=== PATIENT | female | born 1990 | race Caucasian/White ===

== ENCOUNTER 2019-11-05 21:54 | Emergency (ER) | payer SELFPAY ==
[~2019-11-05] VITALS: Ht 149.9 cm; Wt 49.9 kg
[2019-11-05 22:01] VITALS: BP 116/74
--- NOTE | 2019-11-05 22:06 | NUR ---
PT AMBULATED TO BATHROOM, STEADY GAI.T
--- NOTE | 2019-11-05 22:06 | NUR ---
PT AMBULATORY WITH STEADY GAIT TO BED #8
--- NOTE | 2019-11-05 23:00 | NUR ---
29 YEAR OLD FEMALE COMPLAINS OF LEFT SIDED PAIN X 2 DAYS. PATIENT STATES THAT 2 MONTHS AGO SHE WAS AT [facility] AND WAS DIAGNOSED WITH BACTERIAL INFECTION AND SHE HAS TAKEN ANTIBIOTICS WITHOUT RELIEF OF SYMPTOMS. PATIENT DENIES NAUSEA, VOMITTING, DIARRHEA. PATIENT STATES SOME BLACK STOOLS. BOWEL SOUNDS ACTIVE X4, TENDER IN LLQ, NONDISTENDED, SOFT. PATIENT ALSO COMPLAINS OF COUGH, FEVER, CHILLS. PATIENT AOX4, BREATHING EVEN AND UNLABORED, LUNGS CTABL, SKIN WARM AND DRY. ERMD AT BEDSIDE. TRANSLATION USED FOR [place]RAIN[place]. BED IN LOWEST POSITION, LOCKED, BED RAIL UPX1. PMH - DENIES ALLERGIES - NKA
[2019-11-05] MEDS ORDERED: KETOROLAC 60 MG/2 ML VIAL IM ONE (23:05)
[2019-11-05 23:15] VITALS: BP 116/74
--- NOTE | 2019-11-05 23:15 | NUR ---
PT DISCHARGED WITH PAPERWORK. EDUCATED PT REGARDING MEDICACTIONS AND D/C INSTRUCTIONS. PT VERBALIZED UNDERSTANDING OF TEACHING. TOLD PT TO FOLLOW UP WITH PCP AND WHEN TO RETURN TO ED. PT AT STABLE CONDITION. ALL QUESTIONS ANSWERED.
== END 2019-11-05 23:15 | disposition home or self-care (01) ==
LOC: MED 21:54
DX: R10.32 Left lower quadrant pain (principal); R05 Cough
CPT/HCPCS: 81002; 81025; 96372; 99283; J1885